=== PATIENT | female | born 1990 ===

== ENCOUNTER → 2018-11-12 | Outpatient (CLI) | payer BC ==
--- NOTE | 2018-11-12 14:07 | RADIOLOGY IMAGING REPORT ---
FACILITY: [facility] - [place] PATIENT NAME: Grace Roman : 1990 MR: [id number] V: [id number] EXAM DATE: ORDERING PHYSICIAN: MINDA WOODSON TECHNOLOGIST: Location: [facility] - [place] Patient: Grace Roman : 1990 Visit/Account:[id number] Date of Sevice: 11/12/2018 Limited abdominal ultrasound of the right upper quadrant Indication: Right upper quadrant pain, nausea , Comparison: None available Findings Liver is normal in size, contour, and echotexture and measures 15.0 cm in length. There is normal hep atopedal portal venous flow. Gallbladder wall thickness is 0.1 mm with no evidence of shadowing stone or sludge within the gallbla dder lumen. Negative sonographic Ontiveros's sign reported by the technologist. Common duct measures 3.1 mm in maximum diameter with no evidence of shadowing stone. The head and proximal body of the pancreas is unremarkable. The distal body and tail is obscured by o verlying bowel gas. Abdominal aorta and IVC are patent and unremarkable. The right kidney is normal in size, contour, and echotexture and measures 9.6 cm in length. IMPRESSION: 1. Unremarkable appearance of the gallbladder and no acute abnormality on this ultrasound of the righ t upper quadrant region. Report Dictated By: Benjamín Vasquez at 11/12/2018 1:58 PM Report E-Signed By: Benjamín Vasquez at 11/12/2018 2:00 PM WSN:[id number]
== END ==
LOC: US 11:19
PROVIDERS: ATTEND Family Medicine
DX: R10.11 Right upper quadrant pain (principal)
CPT/HCPCS: 76705